=== PATIENT | male | born 1975 | race Caucasian/White ===

== ENCOUNTER 2021-06-07 11:29 | Emergency (ER) | payer OTHER, SELFPAY ==
[2021-06-07 11:39] VITALS: BP 123/88; PULSE 76; RESP 18; TEMP 36.6; O2SAT 97; BMI 31.5
--- NOTE | 2021-06-07 11:47 | XRR_ITS ---
PROCEDURE INFORMATION: Exam: XR Right Ankle Exam date and time: 06/07/2021 11:47 AM Age: 45 years old Clinical indication: Injury or trauma; Other: Hit with tire iron; Blunt trauma; Ankle; Right TECHNIQUE: Imaging protocol: XR Right ankle. Views: 3 or more views. Total images: 3 COMPARISON: No relevant prior studies available. FINDINGS: Bones/joints: Normal. Soft tissues: Normal. XR/XR ankle RT min 3V* [id number] IMPRESSION: No acute findings. Radiation Dose CTDIVOL = (mGy): DLP = (mGy-cm)
--- NOTE | 2021-06-07 11:48 | W.ED.EXTPRO ---
HPI - Extremity Problem General: Chief complaint: Extremity Injury, Lower Stated complaint: RLE INJURY - LAC BY WRENCH Time Seen by Provider: 06/07/21 11:34 History of Present Illness: HPI Narrative: 45-year-old male presents emergency room laceration over the lateral malleolus of his right ankle. He was trying to jump on a pry bar he slipped and pry bar caught in the ankle is a full-thickness laceration. Denies striking his head denies any other injuries he has been ambulatory since. His last tetanus was approximately 6 years ago. MD Complaint: extremity pain Onset (ago): minute(s) Pain Consistency: constant Location: right Quality: sharp Radiation: none Relieving factors: rest Exacerbating factors: walking and palpation Associated symptoms: Deny arthralgias, chest pain, fever(s), myalgias, rash or short of breath Review of Systems Const: Denies: fever(s) ENMT: Denies: throat pain, ear or mastoid pain, nasal discharge or nasal congestion Card: Denies: chest pain Resp: Denies: dyspnea, productive cough or non-productive cough GI: Denies: abdominal pain, nausea, vomiting, hematemesis, coffee ground emesis, diarrhea, constipation, bloating, hematochezia or melena : Denies: flank pain, dysuria, urinary frequency or urinary urgency Skin/Breast: Denies: rash Physical Exam Const: COMMON NORMALS: no acute distress GENERAL APPEARANCE: cooperative and comfortable ORIENTATION/CONSCIOUSNESS: Yes awake, Yes oriented to person, Yes oriented to place and Yes oriented to time HENMT: COMMON NORMALS: normocephalic, atraumatic and hearing grossly normal bilaterally HEAD & SCALP: normocephalic and atraumatic Neck/C-Spine: COMMON NORMALS: full ROM, no lymphadenopathy, supple and no JVD Resp: COMMON NORMALS: normal respiratory effort, No retractions, No use of accessory muscles and clear to auscultation bilaterally AUSCULTATION: clear to auscultation bilaterally Cardio: COMMON NORMALS: no JVD, regular rate, regular rhythm and No murmurs present (Cardio) RATE: regular rate RHYTHM: regular rhythm Extremity: COMMON NORMALS: normal to inspection, capillary refill normal, no clubbing, cyanosis or edema, no calf tenderness and no pedal edema OTHER: 4 cm laceration on the right lateral malleolus Neuro: SENSORIUM/ORIENTATION: Yes oriented to person, Yes oriented to place and Yes oriented to time Procedures Laceration Laceration 1: Site: lower extremity (Overlying right lateral malleolus) Side (If applicable): right Size (cm): 4 Description: linear Depth: simple, single layer Local Anesthetic: lidocaine 1% and with epi Amount of anesthesia used (mL): 2 Skin layer closed with: nylon Size (cm): 3-0 Number of sutures: 1 Technique: running Course Vital Signs: Vital signs: Vital Signs Temperature 97.9 F 06/07/21 11:39 Pulse Rate 76 06/07/21 11:39 Respiratory Rate 18 06/07/21 11:39 Blood Pressure 123/88 06/07/21 11:39 Pulse Oximetry 97 06/07/21 11:39 MDM - Extremity (Nontraumatic) MDM Narrative: Medical decision making narrative: Laceration. X-ray reviewed x-rays negative. Wound care instructions given. Patient tolerated procedure well follow-up in 10 to 14 days for suture removal with his primary care doctor. Apply topical mupirocin until sutures removed. Discharge Plan Discharge Patient Disposition: Home Clinical Impression: Laceration Condition: Stable Prescriptions: New mupirocin 2 % ointment 1 applic topical BID Qty: 15 RF: 0 Discharge Orders: Discharge ED (Routine); Ordered 06/07/21 Ordered By: Taqueria Mccauley Discharge Diet: Usual diet Discharge Activity: Resume usual activity Patient Instructions: Opioid Safety Activity Restrictions/Additional Instructions: Lightly wash wound once a day. Change dressing twice daily apply topical antibiotic applied ointment. Sutures to be removed in 10 to 14 days. Coding Level of Care Code ED Pool Table Operator for Francisca Fwd Exam Detailed
== END 2021-06-07 12:16 | disposition home or self-care (01) ==
PROVIDERS: Emergency Provider Family Medicine
DX: S91.011A Laceration without foreign body, right ankle, initial encounter (principal); W26.8XXA Contact with other sharp object(s), not elsewhere classified, initial encounter
CPT/HCPCS: 12002; 73610; 99282